=== PATIENT | female | born 1975 | race African-American/Black ===

== ENCOUNTER 2023-11-17 13:35 | Emergency (ER) | payer BC ==
[~2023-11-17] VITALS: Ht 170.2 cm; Wt 88.0 kg
[2023-11-17 13:39] VITALS: O2SAT 98
[2023-11-17] MEDS: IBUPROFEN 800MG TABLET PO ONE (15:02)
[2023-11-17] MEDS ORDERED: METH-653 MT (16:48)
[2023-11-17] MEDS ORDERED: IBUP-2029 MT (16:48)
[2023-11-17 17:08] VITALS: BP 141/74; PULSE 94; RESP 19; TEMP 98.4
== END 2023-11-17 17:40 | disposition home or self-care (01) ==
LOC: ER 13:35
DX: M54.2 Cervicalgia (principal); V49.40XA Driver injured in collision with unspecified motor vehicles in traffic accident, initial encounter; Y93.89 Activity, other specified; Y92.89 Other specified places as the place of occurrence of the external cause; Y99.8 Other external cause status
CPT/HCPCS: 81025; 99284